=== PATIENT | male | born 1985 | race Caucasian/White ===

== ENCOUNTER → 2018-11-25 17:53 | Outpatient (CLI) | payer BC, SELFPAY ==
[2018-11-25 18:52] LABS: Alanine Aminotransferase 49 U/L (12-78); Albumin Level 4.5 gm/dL (3.4-5.0); Albumin/Globulin Ratio 1.3 (1.1-1.8); Alkaline Phosphatase 63 U/L (46-116); Anion Gap 15.4 mEq/L (5-15); Aspartate Amino Transferase 23 U/L (15-37); Bilirubin,Total 0.3 mg/dL (0.2-1.0); Blood Urea Nitrogen 12 mg/dL (7-18); Calcium 9.4 mg/dL (8.5-10.1); Carbon Dioxide 26 mmol/L (21.0-32.0); Chloride 104 mmol/L (98-107); Chol/HDL Ratio 6.1 (1-3.5); Cholesterol 214 mg/dL (140-200); Creatinine,Serum 0.88 mg/dL (0.70-1.30); Estimated Glomerular Filt Rate 101 ml/min (>60); Free T4 (Free Thyroxine) 1.04 ng/dl (0.76-1.46); GFR (African American) 122 ML/MIN (>60); Globulin 3.5 gm/dl (1.3-3.2); Glucose 94 mg/dL (74-106); HDL Cholesterol 35 mg/dL (27-67); LDL Cholesterol 146 mg/dL (0-130); Potassium 4.4 mmoL/L (3.5-5.1); Sodium 141 mmol/L (136-145); Thyroid Stimulating Hormone 1.62 uIU/ml (0.358-3.740); Triglycerides 165 mg/dL (30-200); VLDL Cholesterol 33 mg/dL (0-40)
[2018-11-25 19:01] LABS: Basophils # 0.1 K/mm3 (0-0.2); Basophils % 1.3 % (0.1-2.0); Eosinophils # 0.1 K/mm3 (0.0-0.4); Eosinophils % 1.7 % (0.1-12.0); Hemoglobin 14.9 g/dL (14.1-18.0); Lymphocytes # 2.2 K/mm3 (0.7-4.5); Lymphocytes % 29.8 % (10-50); Mean Corpuscular Hemoglobin 29.9 pg (27.0-31.2); Mean Corpuscular Volume 90.7 fl (80-94); Mean Platelet Volume 7.8 fl (7.4-10.4); Monocytes # 0.4 K/mm3 (0.1-1.0); Monocytes % 5.3 % (1.7-9.3); Neutrophils # 4.5 K/mm3 (1.8-7.8); Neutrophils % 61.9 % (37.0-80.0); Platelet Count 407 K/mm3 (142-424); Red Blood Count 4.96 M/mm3 (4.60-6.20); Red Cell Distribution Width 12.8 % (11.5-17.5); White Blood Count 7.2 K/mm3 (4.8-10.8)
[2018-11-27 17:47] LABS: Vitamin D 25 Hydroxy 13.7 ng/mL (30.0-100.0)
== END ==
PROVIDERS: Visit Provider Emergency Medicine
DX: R53.83 Other fatigue (principal); E55.9 Vitamin D deficiency, unspecified
CPT/HCPCS: 80053; 80061; 82652; 84439; 84443; 85025

== ENCOUNTER → 2022-10-24 16:16 | Outpatient (CLI) | payer OTHER, MEDICAID, SELFPAY | PROVIDERS: PCP Emergency Medicine; Visit Provider Emergency Medicine | DX: R59.1 Generalized enlarged lymph nodes (principal) ==

== ENCOUNTER 2023-10-12 18:00 | Outpatient (CLI) | payer OTHER, SELFPAY ==
[2023-10-12 18:36] LABS: Basophils # 0.1 K/mm3 (0-0.2); Basophils % 1.7 % (0.1-2.0); Eosinophils # 0.2 K/mm3 (0.0-0.4); Eosinophils % 3.4 % (0.1-12.0); Hematocrit 42.5 % (42.0-52.0); Lymphocytes # 2.1 K/mm3 (0.7-4.5); Lymphocytes % 31.2 % (10-50); Mean Corpuscular HGB Conc 32.8 g/dL (31.8-35.4); Mean Corpuscular Hemoglobin 29.9 pg (27.0-31.2); Mean Corpuscular Volume 90.9 fl (80-94); Mean Platelet Volume 8.6 fl (7.4-10.4); Monocytes # 0.4 K/mm3 (0.1-1.0); Monocytes % 5.3 % (1.7-9.3); Neutrophils % 58.5 % (37.0-80.0); Platelet Count 323 K/mm3 (142-424); Red Blood Count 4.67 M/mm3 (4.60-6.20); Red Cell Distribution Width 13.6 % (11.5-17.5); White Blood Count 6.8 K/mm3 (4.8-10.8)
[2023-10-12 18:38] LABS: Alanine Aminotransferase 41 U/L (12-78); Albumin Level 4.4 g/dl (3.5-5.0); Albumin/Globulin Ratio 1.3 (1.1-1.8); Alkaline Phosphatase 63 U/L (38-126); Aspartate Amino Transferase 39 U/L (17-59); Bilirubin,Total 0.5 mg/dl (0.2-1.3); Blood Urea Nitrogen 12 mg/dl (9-20); Carbon Dioxide 23 mmol/L (22.0-30.0); Chloride 104 mmol/L (98-107); Chol/HDL Ratio 7.7 (1-3.5); Cholesterol 201 mg/dl (140-200); Estimated Glomerular Filt Rate 128 ml/min (>60); GFR (African American) 154 ML/MIN (>60); Globulin 3.3 g/dL (1.3-3.2); Glucose 103 mg/dl (74-100); HDL Cholesterol 26 mg/dl (40-60); Sodium 138 mmol/L (136-145); Total Protein,Serum 7.7 g/dl (6.3-8.2); Triglycerides 224 mg/dl (30-150); VLDL Cholesterol 45 mg/dL (0-40)
[2023-10-12 18:46] LABS: Anion Gap 15.4 mEq/L (5-15); Potassium 4.4 mmoL/L (3.5-5.1)
[2023-10-12 18:49] LABS: Direct LDL Cholesterol 139.16 mg/dL (100-129)
[2023-10-12 19:07] LABS: 25-OH Vitamin D, Total 13.6 ng/mL (30-100)
[2023-10-12 19:19] LABS: Hemoglobin A1C 5.7 % (4.0-6.0)
== END 2023-10-12 23:59 | disposition home or self-care (01) ==
LOC: LAB.DROPOF 10-13 08:57
PROVIDERS: PCP Family Medicine; Visit Provider Family Medicine
DX: E78.5 Hyperlipidemia, unspecified (principal); E55.9 Vitamin D deficiency, unspecified; Z68.41 Body mass index [BMI] 40.0-44.9, adult
CPT/HCPCS: 80053; 80061; 82306; 83036; 84443; 85025